=== PATIENT | male | born 1990 | race African-American/Black ===

== ENCOUNTER 2017-10-02 20:11 | Emergency (ER) | payer OTHER ==
[~2017-10-02] VITALS: Ht 170.2 cm; Wt 79.0 kg
--- NOTE | 2017-10-02 20:21 | PD ---
HPI Chief Complaint: Medical Clearance Time Seen by Provider: 20:20 Travel History International Travel<30 days: No Contact w/Intl Traveler<30days: No History of Present Illness HPI 27-year-old Afro-[place] male brought in from long term with 5 day history of increasing abdominal pain. Patient has history of right hernia repair one year ago. Patient states he's had a recurrent hernia there for a couple of weeks now. Patient has had increasing pain generally in the abdomen as well as swelling to the right inguinal area with extension into the testicle. Patient had nausea and vomiting over the past 2 days. Patient states he did move his bowels this morning. He states he was constipated prior to that. He states no pain with urination. He is unsure if he has had fever. Pain is 8 out of 10. He has had decreased urine out. He has no known drug allergies. [facility] Social History Alcohol Use: No Tobacco Use: Yes Substance Use: No Allergies-Medications (Allergen,Severity, Reaction): Coded Allergies: No Known Allergies (Unverified , 10/02/17) Review of Systems Except as stated in HPI: all other systems reviewed are Neg General / Constitutional: Positive: Fever (subjective), Chills Eyes: No: Visual changes HENT: No: Headaches Cardiovascular: No: Chest Pain or Discomfort Respiratory: No: Shortness of Breath Gastrointestinal: Positive: Nausea, Vomiting, Abdominal Pain, Other (right- sided hernia.) Genitourinary: Positive: Decreased Urinary Output, No: Urgency, Frequency, Dysuria Musculoskeletal: No: Myalgias, Arthralgias, Limited ROM, Pain Skin: No Rash Neurologic: No: Weakness Psychiatric: No: Depression Endocrine: No: Polydipsia Hematologic/Lymphatic: No: Easy Bruising Physical Exam Narrative GENERAL: Patient appears in mild to moderate distress. He appears dehydrated. SKIN: Warm and dry. Normal color. Decreased turgor with tenting. HEAD: Atraumatic. Normocephalic. EYES: Pupils equal and round. No scleral icterus. No injection or drainage. ENT: No nasal bleeding or discharge. Mucous membranes pink and dry. Pharynx is clear. Airway is patent. NECK: Trachea midline. No JVD. CARDIOVASCULAR: Regular rate and rhythm. RESPIRATORY: No accessory muscle use. Clear to auscultation. Breath sounds equal bilaterally. GASTROINTESTINAL: Abdomen generally firm, mild to moderate generalized tenderness, distended. Hepatic and splenic margins not palpable. MUSCULOSKELETAL: Extremities without clubbing, cyanosis, or edema. No obvious deformities. NEUROLOGICAL: Awake and alert. No obvious cranial nerve deficits. Motor grossly within normal limits. Five out of 5 muscle strength in the arms and legs. Normal speech. PSYCHIATRIC: Appropriate mood and affect; insight and judgment normal. Data Data Last Documented VS Vital Signs Date Time Temp Pulse Resp B/P (MAP) Pulse Ox O2 Delivery O2 Flow Rate FiO2 10/02/17 21:49 10/02/17 20:24 97.6 84 16 100 Orders Orders Ondansetron Inj (Zofran Inj) (10/02/17 20:30) Sodium Chlor 0.9% 1000 Ml Inj (Ns 1000 M (10/02/17 20:26) Sodium Chloride 0.9% Flush (Ns Flush) (10/02/17 20:30) Electrocardiogram (10/02/17 20:26) Morphine Inj (Morphine Inj) (10/02/17 20:30) Propofol 200 Mg/20 Ml Inj (Diprivan 200 (10/02/17 20:45) Iv Access Insert/Monitor (10/02/17 20:33) Ecg Monitoring (10/02/17 20:33) Oximetry (10/02/17 20:33) Sodium Chlor 0.9% 1000 Ml Inj (Ns 1000 M (10/02/17 20:33) Sodium Chloride 0.9% Flush (Ns Flush) (10/02/17 20:45) Ed Discharge Order (10/02/17 21:44) MDM Medical Decision Making Medical Screen Exam Complete: Yes Emergency Medical Condition: Yes Differential Diagnosis Right inguinal hernia. Possible incarceration. Bowel Obstruction. Nausea and vomiting. Narrative Course Patient discussed with Dr. St, who examined the patient. Dr. Vasquez would like to reduce the hernia with propofol and conscious sedation. IV access is obtained. Hernia was reduced by Dr. St, and patient was able tolerate oral meds. Patient medically cleared for return to incarceration. Patient should follow-up with medical staff at the present for further evaluation and treatment Diagnosis Primary Impression: Reducible right inguinal hernia Additional Impression: Medical clearance for incarceration Referrals: Primary Care Physician Patient Instructions: General Instructions, Inguinal Hernia (ED) Additional Instructions: Hernia was reduced by Dr. St, and patient was able tolerate oral meds. Patient medically cleared for return to incarceration. Patient should follow-up with medical staff at the present for further evaluation and treatment Med/Other Pt SpecificInfo: No Meds Exist/No RX given Disposition: [address] LAW ENFORCEMNT Condition: Stable Rayo Johnson Oct 02, 2017 20:21
[2017-10-02 20:24] VITALS: BP 156/68; PULSE 84; RESP 16; TEMP 97.6; O2SAT 100
[2017-10-02] MEDS ORDERED: SODIUM CHLOR 0.9% 1000 ML INJ 1,000 ML IV SCH (20:26)
[2017-10-02] MEDS ORDERED: MORPHINE SULFATE 2 MG/ML INJ IV PUSH ONE (20:30)
[2017-10-02] MEDS ORDERED: ONDANSETRON HCL 4 MG/2 ML VIAL IVP ONE (20:30)
[2017-10-02] MEDS ORDERED: SODIUM CHLORIDE 0.9% FLUSH 10 ML FLUSH IV FLUSH PRN ×2 (20:30→20:45)
[2017-10-02] MEDS ORDERED: PROPOFOL 200 MG/20 ML AMP IV ONE (20:45)
[2017-10-02] MEDS: SODIUM CHLOR 0.9% 1000 ML INJ 1,000 ML IV SCH ×3 (20:46→20:56)
[2017-10-02 21:00] VITALS: O2SAT 98
--- NOTE | 2017-10-02 22:02 | PD ---
Data Data Last Documented VS Vital Signs Date Time Temp Pulse Resp B/P (MAP) Pulse Ox O2 Delivery O2 Flow Rate FiO2 10/02/17 21:49 10/02/17 20:24 97.6 84 16 100 Orders Orders Ondansetron Inj (Zofran Inj) (10/02/17 20:30) Sodium Chlor 0.9% 1000 Ml Inj (Ns 1000 M (10/02/17 20:26) Sodium Chloride 0.9% Flush (Ns Flush) (10/02/17 20:30) Electrocardiogram (10/02/17 20:26) Morphine Inj (Morphine Inj) (10/02/17 20:30) Propofol 200 Mg/20 Ml Inj (Diprivan 200 (10/02/17 20:45) Iv Access Insert/Monitor (10/02/17 20:33) Ecg Monitoring (10/02/17 20:33) Oximetry (10/02/17 20:33) Sodium Chlor 0.9% 1000 Ml Inj (Ns 1000 M (10/02/17 20:33) Sodium Chloride 0.9% Flush (Ns Flush) (10/02/17 20:45) Ed Discharge Order (10/02/17 21:44) [facility] Medical Record Reviewed: Yes Supervised Visit with JAIME: Yes Narrative Course I, Dr. St, have reviewed the advance practice practitioner's documentation and am in agreement, met with the patient face to face, made the diagnosis, and the medical decision making was done by me. *My assessment and Findings: Hernia was reduced after the patient was sedated with propofol. Patient tolerated Gatorade without difficulty. Return precautions discussed Procedures Procedure Narrative After the risks and benefits were discussed the following procedure was performed: MODERATE SEDATION: The patient was placed on a cafeteria monitor and pulse oximetry. An ambu bag and suction was immediately available at bedside. The patient was monitored by the nurse. Oxygen saturation , heart rate and blood pressure were monitored. Procedural sedation was acheived using propofol. The patient was observed until awake and alert. Procedural Sedation time in attendance was 15 minutes. Diagnosis Primary Impression: Reducible right inguinal hernia Additional Impression: Medical clearance for incarceration Referrals: Primary Care Physician Patient Instructions: General Instructions, Inguinal Hernia (ED) Departure Forms: Tests/Procedures Additional Instruction: Hernia was reduced by Dr. St, and patient was able tolerate oral meds. Patient medically cleared for return to incarceration. Patient should follow-up with medical staff at the present for further evaluation and treatment Disposition: [address] LAW ENFORCEMNT Condition: Stable Francisco Javier St MD Oct 02, 2017 22:02
== END 2017-10-02 22:26 ==
LOC: EEVIPCON 20:11 → NEPC 20:11
DX: K40.90 Unilateral inguinal hernia, without obstruction or gangrene, not specified as recurrent (principal); R11.2 Nausea with vomiting, unspecified; Z72.0 Tobacco use
CPT/HCPCS: 49585; 96361; 96374; 99152; 99285; J2270; J7030